=== PATIENT | male | born 1950 | race Caucasian/White ===

== ENCOUNTER → 2017-05-09 | Day surgery (SDC) | payer OTHER, MEDICARE ==
[~2017-05-09] VITALS: Ht 172.7 cm; Wt 93.0 kg
[~2017-05-09] MED LIST: AMMO385C5 TP; ASPI-628 PO; CARV6.252 PO; GABA600T PO; HYDR25TA4 PO; Ketamine 10 mg/mL 20 mL Inj ONE; LOVA20TA PO; Lactated Ringer's 1,000 ML IV ONE; METF10002 PO; MetoCLOpramide 5 mg/mL 2 mL Inj IVPUSH PRN; Ondansetron 2 mg/mL 2 mL Inj IVPUSH PRN; Propofol 10,000 mCg/mL 20 mL Inj ONE
--- NOTE | 2017-05-09 07:24 | PCM.HPANE ---
Patient Data Surgeon Admitting Provider: Attending Provider:Jose Botello MD Primary Care Physician:Marlene Toth PA-C Other Provider:Trudy Brown Anesthesia Reason for Visit Diarrhea Ht/WT & BMI Body Mass Index Allergies Coded Allergies: No Known Allergies (Verified Allergy, Unknown, 11/08/14) Past Anesthesia History Anesthesia History: Denies:: Abnormal Airway, Anesthesia Reactions, Difficult Intubation, Fam Anesthesia Reaction, Fam Malignant Hypertherm, Malignant Hyperthermia Diabetes History Hx Diabetes?: Yes Glycemic Control: Oral Medication MRSA MRSA: No Medications Blood Thinner: Aspirin Home Meds Incl Beta Derrick: Yes Date Beta Derrick Taken: May 08, 2017 Time Beta Derrick Taken: 16:00 Reported Medications Lovastatin 20 Mg [id number] Mg PO HS #30 TABLET Ref 0 05/07/17 Carvedilol 6.25 Mg Tablet6.25 Mg PO BID Ref 0 11/08/14 Hydrochlorothiazide 25 Mg [id number] Mg PO DAILY 30 Days Ref 0 06/23/14 Metformin 1,000 Mg Tablet1,000 Mg PO BIDWM 30 Days Ref 0 06/23/14 Gabapentin (Neurontin)600 Mg [id number] Mg PO TID 30 Days Ref 0 06/23/14 Ammonium Lactate 140 Gm Cream..g.140 Gm TP 06/23/14 Aspirin (Aspir 81)81 Mg Tablet.dr81 Mg PO DAILY Ref 0 06/23/14 Discontinued Reported Medications Simvastatin 40 Mg [id number] Mg PO HS 30 Days Ref 0 11/08/14 Felodipine ER 10 Mg Tab.er.24h10 Mg PO DAILY 30 Days Ref 0 06/23/14 History History of ENT Problems?: No HEENT History: Denies:: Abnormal Airway Difficult Intubation Hearing Problem Denture Type: None Teeth Condition: Within Normal Limits Hx of Heart Problems?: Yes Cardiovascular History: Positive for:: Hypertension Denies:: AICD Atrial Fibrillation Chest Pain Pacemaker Valvular Heart Disease Hx of Respiratory Problem?: Yes Respiratory History: Denies:: Asthma COPD Cough Hemoptysis Pneumonia Tuberculosis Hx Neurologic Problems?: No Neurological History: Denies:: CVA Hx of GI Problems?: No Hx of Problems?: No HX of Peritoneal Dialysis: No Male Hx: Denies:: Prostate Problems Scrotal Mass Testicular Surgery Hx Musculoskeletal Problems?: No Musculoskeletal History: Denies:: Joint Replacement Psycho Social History: Denies:: Anxiety Hx Depression Hx Surgeries?: Yes (TONSILS) Hx Any Other Health Problems?: No Hx Diabetes: Yes Hx Alcohol Use: Yes (SOCIAL) Smoking Status: Former Smoker Stop/Bang Treated for Sleep Apnea?: No Do You Have a CPAP Machine?: No S-Snoring: Do You Snore Loudly: No T-Tired: feel tired, fatigued: No O-Obsered: Observed not breath: No P-Blood Pressure: treated: No B- Body Mass Index > 35 kg/m2: No A- Age over 50: Yes N- Neck Large Circumference: No G- Gender Male: Yes JULIO C Risk Assessment: Low Risk, <3 Yes Risk Assessment Category Category 1A: Patient has history of documented sleep apnea, and HAS NOT received any narcotic, sedative or anesthesia administration during this stay. Category 1B: Patient has history of documented sleep apnea, and HAS received any narcotic , sedative or anesthesia administration during this stay Category 2: Patient has SUSPECTED Obstructive Sleep Apnea, and HAS received any narcotic , sedative or anesthesia administration during this stay. Category 3: Patient has SUSPECTED Obstructive Sleep Apnea and HAS NOT received narcotic, sedative or anesthesia administration during this stay. Category 4: Outpatient in Procedural Areas with known sleep apnea or who screen positive for High Risk via the STOP/BANG questionnaire. Exam Exam General Appearance: Alert, Oriented X3, Cooperative, No Acute Distress HEENT/AIRWAY: MP 2 Lungs: Clear to Auscultation, Normal Air Movement Heart: Exam Unremarkable, Regular Rate/Rhythm, No Murmurs/Rubs/Gallops Plan Impression Patient chart reviewed, patient interviewed and anesthestic plan with risks, benefits, and alternatives discussed, and informed consent obtained. NPO per Anesth. Guidelines: Yes ASA Physical Status: ASA2 Mod Systemic Disease Anesthetic Plan: MAC Bene/Risks/Altern/Consents: Yes HP Complete Prior to Induction: Yes Alessandro Lubin MD May 09, 2017 07:24
[2017-05-09 11:27] VITALS: BP 162/96; PULSE 80; RESP 14; O2SAT 97
[2017-05-09] MEDS: Lactated Ringer's 1,000 ML IV SCH ×3 (12:07→12:43)
--- NOTE | 2017-05-09 12:47 | PCM.ENDCOL ---
Colonoscopy Date of Service: May 09, 2017 Physician Jose Botello MD Pre Procedure Diagnosis: History of polyps unable to get into the cecum on the last colonoscopy and diarrhea resolved. Post Procedure Dx & Findings: Hemorrhoids diverticuli Procedure Colonoscopy PROCEDURE IN DETAIL: Sedation by anesthesiology Prep adequate Withdrawal time 12 minutes After unremarkable rectal examination the Olympus video colonoscope was inserted patient's anal canal and was advanced to cecum. Landmarks were identified including the ileocecal valve and appendiceal orifice. Scope was withdrawn systematically. Visualized colonic mucosa showed healthy shiny mucosa with normal healthy-appearing vasculature. Pandiverticulosis multiple medium to large. In the rectum retroflexion was done which showed hemorrhoids. Anal canal was inspected carefully on the way out and hemorrhoids noted. Impression Pandiverticulosis Hemorrhoids History of polyps Diarrhea resolved Recommendation Repeat colonoscopy 5 years Diverticular diet Presedation Assessment Risks and Benefits Informed consent was obtained from the patient after all risks and benefits including but not limited to drug reaction, infection, pain, bleeding, perforation, as well as alternatives were discussed. Patient monitoring Continuous pulse oximetry, cardiac monitoring, blood pressure monitoring, IV access, and oxygen at 2L per nasal cannula. Complications There were no periprocedural complications identified. Post Procedure Plan Post Procedure Recommendations 1. Restrict activities today. 2. Resume normal activities in the morning. 3. Resume medications. 4. Patient informed of normal post procedure side effects as bloating, drowsiness, blood streaking in the stool. 5. average risk CRCS. If colon polyps come back as: -Hyperplastic- can repeat colonoscopy in 10 years -Tubular adenoma- repeat colonoscopy in 5 years -Tubulovillous/villous adenoma- repeat colonoscopy in 3 years -If any dysplasia- return to clinic as soon as possible 6. Please don't hesitate to call me with any questions. Jose Botello MD May 09, 2017 12:47
[2017-05-09 12:52] VITALS: BP 105/67; PULSE 86; RESP 14; O2SAT 98
[2017-05-09 12:55] VITALS: BP 122/72; PULSE 70; RESP 14; O2SAT 97
[2017-05-09 13:06] VITALS: BP 109/71; PULSE 69; RESP 14; O2SAT 98
[2017-05-09 13:11] VITALS: BP 127/75; PULSE 67; RESP 14; O2SAT 99
--- NOTE | 2017-05-13 08:11 | PCM.ANEP1 ---
Post Anesthesia PACU Phase 1 Assessment Level of Alertness: Awake, talking GREEN's with Equal Strength: Yes Pain: No Nausea or Vomiting: No CV Function & Hydration Stable: Yes Airway Device: none Oxygen Delivery: Nasal Cannula Lungs: Clear to Auscultation, Normal Air Movement Dermatome Level: Full Sensation PACU Phase 2 Assessment Complications: No Follow up Care: No Patient Instructions Provided: N/A Alessandro Lubin MD May 13, 2017 08:11
== END | disposition home or self-care (01) ==
LOC: END 01:13
PROVIDERS: ATTEND Internal Medicine
DX: R19.7 Diarrhea, unspecified (principal); K57.30 Diverticulosis of large intestine without perforation or abscess without bleeding; K64.8 Other hemorrhoids; Z86.010 Personal history of colon polyps; I10 Essential (primary) hypertension; E78.5 Hyperlipidemia, unspecified; E11.40 Type 2 diabetes mellitus with diabetic neuropathy, unspecified; E66.9 Obesity, unspecified; Z79.82 Long term (current) use of aspirin; Z79.84 Long term (current) use of oral hypoglycemic drugs
CPT/HCPCS: 45378; J2704; J7120